=== PATIENT | male | born 1930 | race Caucasian/White ===

== ENCOUNTER 2017-04-05 08:16 | Observation (INO) | payer OTHER ==
[~2017-04-05] VITALS: Ht 180.3 cm; Wt 135.4 kg
[~2017-04-05 08:16] MED LIST: ACETAMINOPHEN650 M6 PO; AMIODARONE HCL200 MG PO; AMITRIPTYLINE H10 M1 PO; ASPIRIN81 M1 PO; CALCITRIOL0.25 MCG PO; COUMADIN,JANTOVE4 MG PO; COUMADIN,JANTOVE6 MG PO; Combivent IH; FUROSEMIDE40 MG PO; GLIMEPIRIDE1 MG PO; LASIX40 MG PO; LOPRESSOR100 M1 PO; METOPROLOL SUCC50 MG PO; NAMENDA XR28 MG PO; NORVASC5 MG PO; PACERONE200 M1 PO; PERCOCET 5/31 TABLET PO; POTABA500 MG PO; POTASSIUM GLUCO2 MEQ PO; PRADAXA150 MG PO; PRAVASTATIN SOD40 MG PO; PRINZIDE 20-121 EACH PO; TYLENOL 8 HOUR650 MG PO; VALSARTAN-HCTZ1 EAC2 PO; VISION VITAMIN1 EAC1 PO; VITAMIN D32000 UNI1 PO; WARFARIN SODIUM4 MG PO
[2017-04-05 09:02] LABS: EOSINOPHIL (%) 2.1 % (0-5); EOSINOPHIL COUNT 0.2 K/uL (0-0.3); HEMATOCRIT 33.7 % (38.0-50.0); IMMATURE GRANULOCYTE (%) 0.5 % (0.0-0.7); INSTRUMENT ABS NEUTROPHIL CT 6.3 K/uL; LYMPHOCYTE COUNT 1.3 K/uL (1.0-2.8); MCH 29.8 PG (29.0-34.0); MCHC 32.3 G/DL (30.0-36.0); MCV 92.1 FL (86-99); MEAN PLAT.VOLUME 9.7 uM^3 (9.0-12.4); MONOCYTE (%) 5.4 % (3-12); MONOCYTE COUNT 0.4 K/uL (0-0.8); NEUTROPHIL (%) 76.3 % (45-76); NEUTROPHIL COUNT 6.3 K/uL (1.8-6.4); PLATELET COUNT 185 K/uL (156-360); RBC DIS.WIDTH-CV 13.3 % (11.8-14.6); RBC DIS.WIDTH-SD 45.2 % (39-53); RED BLOOD COUNT 3.66 M/uL (4.00-5.50); WHITE BLOOD COUNT 8.2 K/uL (4.1-10.2)
[2017-04-05 09:11] LABS: INTER. NORMALIZED RATIO 1.5; PROTHROMBIN TIME 16.7 SEC (10.2-12.9)
[2017-04-05 09:14] LABS: CHLORIDE 100 mEq/L (99-109); POTASSIUM 4.3 mEq/L (3.7-5.4); PTT 58.3 SEC (25-37); SODIUM 136 mEq/L (136-147)
[2017-04-05 09:15] LABS: GLUCOSE 259 mg/dL (70-99)
[2017-04-05 09:17] LABS: ANION GAP 10 MEQ/L (2-14)
[2017-04-05 09:19] LABS: GFR ESTIMATE (CALCULATED) > 59 mL/min/
[2017-04-05 09:20] LABS: UREA NITROGEN (BUN) 24 mg/dL (9-23)
[2017-04-05 09:25] LABS: TROP-I INTERPRETATION NEGATIVE; TROPONIN-I < 0.01 ng/mL (0.0-0.30)
[2017-04-05] MEDS ORDERED: OCUVITE TABLET1 EACH PO (11:24)
[2017-04-05] MEDS ORDERED: K-DUR20 MEQ PO (11:25)
[2017-04-05] MEDS ORDERED: TYLENOL ARTHRI650 MG PO (11:25)
[2017-04-05 12:02] VITALS: BP 129/66
[2017-04-05 13:46] LABS: POINT-OF-CARE METER ID UU13113831
[2017-04-05 18:58] LABS: TROP-I INTERPRETATION NEGATIVE; TROPONIN-I 0.02 ng/mL (0.0-0.30)
[2017-04-05 19:00] VITALS: BP 133/62
[2017-04-05 22:25] LABS: POINT-OF-CARE METER ID UU13113831
[2017-04-05 23:18] VITALS: BP 136/68
[2017-04-06 03:08] LABS: TROP-I INTERPRETATION NEGATIVE; TROPONIN-I 0.01 ng/mL (0.0-0.30)
[2017-04-06 05:00] VITALS: BP 138/65
[2017-04-06 05:52] LABS: HEMATOCRIT 35.5 % (38.0-50.0); MCH 29.1 PG (29.0-34.0); MCHC 31.8 G/DL (30.0-36.0); MCV 91.5 FL (86-99); MEAN PLAT.VOLUME 10.1 uM^3 (9.0-12.4); PLATELET COUNT 197 K/uL (156-360); RBC DIS.WIDTH-CV 13.3 % (11.8-14.6); RBC DIS.WIDTH-SD 44.9 % (39-53); RED BLOOD COUNT 3.88 M/uL (4.00-5.50)
[2017-04-06 06:21] LABS: ALKALINE PHOSPHATASE 57 IU/L (3-129); ANION GAP 8 MEQ/L (2-14); CHLORIDE 95 MEQ/L (99-109); GFR ESTIMATE (CALCULATED) > 59 mL/min/; GLUCOSE 145 mg/dL (70-99); MAGNESIUM 1.8 mg/dl (1.3-2.7); POTASSIUM 3.8 MEQ/L (3.7-5.4); SAMPLE HEMOLYSIS CHECK 0; SAMPLE ICTERIC CHECK 0; SAMPLE LIPEMIA CHECK 0; SODIUM 135 MEQ/L (136-147); TOTAL BILIRUBIN 0.8 MG/DL (0.0-1.0); UREA NITROGEN (BUN) 25 mg/dL (9-23)
[2017-04-06 06:54] VITALS: BP 133/61
[2017-04-06 08:55] LABS: POINT-OF-CARE METER ID UU13113831
== END 2017-04-06 13:07 | disposition home or self-care (01) ==
LOC: EME 08:16 → 5WEST 10:36 → EDOF 10:36 → ENRESERV 10:39 → EDOF 10:50 → ENRESERV 11:22 → 5WEST 11:48
PROVIDERS: Emergency Medicine; Hospitalist
DX: R07.9 Chest pain, unspecified (principal); I11.0 Hypertensive heart disease with heart failure; I50.9 Heart failure, unspecified; I48.91 Unspecified atrial fibrillation; Z95.0 Presence of cardiac pacemaker; E78.5 Hyperlipidemia, unspecified; F03.90 Unspecified dementia, unspecified severity, without behavioral disturbance, psychotic disturbance, mood disturbance, and anxiety; E11.9 Type 2 diabetes mellitus without complications; Z87.891 Personal history of nicotine dependence; Z66 Do not resuscitate
CPT/HCPCS: 71010; 71020; 80048; 80053; 82948; 83735; 83880; 84484; 85025; 85027; 85610; 85730; 93005; 94640; 99281; 99285; G0378; J1815; J1940

== ENCOUNTER 2017-06-13 09:21 | Emergency (ER) | payer OTHER ==
[~2017-06-13] VITALS: Ht 180.3 cm; Wt 134.4 kg
[~2017-06-13 09:21] MED LIST changes: +K-DUR20 MEQ PO; +OCUVITE TABLET1 EACH PO; +TYLENOL ARTHRI650 MG PO
[2017-06-13 10:04] LABS: EOSINOPHIL (%) 1.9 % (0-5); EOSINOPHIL COUNT 0.2 K/uL (0-0.3); HEMATOCRIT 34.6 % (38.0-50.0); IMMATURE GRANULOCYTE (%) 0.3 % (0.0-0.7); LYMPHOCYTE COUNT 1.2 K/uL (1.0-2.8); MCH 28.7 PG (29.0-34.0); MCHC 31.8 G/DL (30.0-36.0); MCV 90.3 FL (86-99); MEAN PLAT.VOLUME 9.9 uM^3 (9.0-12.4); MONOCYTE (%) 6.1 % (3-12); MONOCYTE COUNT 0.6 K/uL (0-0.8); NEUTROPHIL (%) 77.7 % (45-76); PLATELET COUNT 174 K/uL (156-360); RBC DIS.WIDTH-CV 13.4 % (11.8-14.6); RBC DIS.WIDTH-SD 44.2 % (39-53); RED BLOOD COUNT 3.83 M/uL (4.00-5.50)
[2017-06-13 10:18] LABS: CHLORIDE 90 mEq/L (99-109); POTASSIUM 4.1 mEq/L (3.7-5.4); SODIUM 130 mEq/L (136-147)
[2017-06-13 10:20] LABS: GLUCOSE 167 mg/dL (70-99)
[2017-06-13 10:21] LABS: ANION GAP 9 MEQ/L (2-14)
[2017-06-13 10:22] LABS: TOTAL BILIRUBIN 1.3 mg/dL (0.0-1.0)
[2017-06-13 10:23] LABS: ALKALINE PHOSPHATASE 68 IU/L (3-129)
[2017-06-13 10:24] LABS: GFR ESTIMATE (CALCULATED) > 59 mL/min/
[2017-06-13 10:25] LABS: UREA NITROGEN (BUN) 21 mg/dL (9-23)
[2017-06-13 10:28] LABS: TROP-I INTERPRETATION NEGATIVE; TROPONIN-I 0.02 ng/mL (0.0-0.30)
[2017-06-13 10:56] LABS: ADD MIUA? YES; BILIRUBIN NEGATIVE; BLOOD NEGATIVE; COLOR YELLOW ((YELLOW)); GLUCOSE (STRIP) NEGATIVE; KETONES NEGATIVE; LEUKOCYTES TRACE; NITRITE NEGATIVE; PROTEIN (STRIP) NEGATIVE; SPECIFIC GRAVITY 1.012 (1.000-1.030)
[2017-06-13 11:03] LABS: BACTERIA NONE SEEN /HPF; BUDDING YEAST 2+; EPITHELIAL CELLS NONE SEEN /HPF; HYALINE CASTS 0-5 /LPF; MUCUS NONE SEEN /LPF; RED BLOOD CELLS 0-5 /HPF (0-5); UCUL ADDED? NO; WHITE BLOOD CELLS 0-5 /HPF (0-5)
[2017-06-13 11:55] VITALS: BP 109/60
== END 2017-06-13 11:55 | disposition home or self-care (01) ==
LOC: EME 09:21
PROVIDERS: Physician Assistant
DX: R06.02 Shortness of breath (principal); E87.1 Hypo-osmolality and hyponatremia; I12.9 Hypertensive chronic kidney disease with stage 1 through stage 4 chronic kidney disease, or unspecified chronic kidney disease; N18.9 Chronic kidney disease, unspecified; E11.22 Type 2 diabetes mellitus with diabetic chronic kidney disease; E78.5 Hyperlipidemia, unspecified; Z95.0 Presence of cardiac pacemaker; Z79.84 Long term (current) use of oral hypoglycemic drugs; Z87.891 Personal history of nicotine dependence
CPT/HCPCS: 71020; 80053; 81003; 83880; 84484; 85025; 93005; 99281; 99284

== ENCOUNTER 2017-06-16 10:09 | Inpatient (IN) | payer OTHER ==
[~2017-06-16] VITALS: Ht 180.3 cm; Wt 134.3 kg
[2017-06-16] VITALS (8 sets, daily range): BP systolic 93–153; BP diastolic 55–87
[2017-06-16 11:10] LABS: HEMATOCRIT 32.3 % (38.0-50.0); MCH 29.3 PG (29.0-34.0); MCHC 32.5 G/DL (30.0-36.0); MCV 90.2 FL (86-99); MEAN PLAT.VOLUME 9.8 uM^3 (9.0-12.4); PLATELET COUNT 165 K/uL (156-360); RBC DIS.WIDTH-CV 13.5 % (11.8-14.6); RBC DIS.WIDTH-SD 44.7 % (39-53); RED BLOOD COUNT 3.58 M/uL (4.00-5.50); WHITE BLOOD COUNT 8.5 K/uL (4.1-10.2)
[2017-06-16 11:20] LABS: CHLORIDE 91 mEq/L (99-109); POTASSIUM 3.7 mEq/L (3.7-5.4); SODIUM 131 mEq/L (136-147)
[2017-06-16 11:21] LABS: GLUCOSE 170 mg/dL (70-99)
[2017-06-16 11:23] LABS: ANION GAP 10 MEQ/L (2-14)
[2017-06-16 11:25] LABS: GFR ESTIMATE (CALCULATED) 51 mL/min/
[2017-06-16 11:26] LABS: UREA NITROGEN (BUN) 27 mg/dL (9-23)
[2017-06-16 11:37] LABS: TROP-I INTERPRETATION NEGATIVE; TROPONIN-I 0.02 ng/mL (0.0-0.30)
[2017-06-16] MEDS ORDERED: TYLENOL EXTRA500 MG PO (14:05)
[2017-06-16 16:12] LABS: POINT-OF-CARE METER ID UU13113774
[2017-06-16 17:06] LABS: TROP-I INTERPRETATION NEGATIVE; TROPONIN-I 0.03 ng/mL (0.0-0.30)
[2017-06-16 22:11] LABS: POINT-OF-CARE METER ID UU13113774
[2017-06-17 00:08] LABS: TROP-I INTERPRETATION NEGATIVE; TROPONIN-I 0.02 ng/mL (0.0-0.30)
[2017-06-17 06:00] LABS: POINT-OF-CARE METER ID UU13113774
[2017-06-17 06:44] VITALS: BP 126/62
[2017-06-17 07:26] LABS: ANION GAP 7 MEQ/L (2-14); CHLORIDE 89 MEQ/L (99-109); GFR ESTIMATE (CALCULATED) 51 mL/min/; POTASSIUM 3.3 MEQ/L (3.7-5.4); SAMPLE HEMOLYSIS CHECK 0; SAMPLE ICTERIC CHECK 0; SAMPLE LIPEMIA CHECK 0; SODIUM 132 MEQ/L (136-147); UREA NITROGEN (BUN) 24 mg/dL (9-23)
[2017-06-17 07:32] LABS: GLUCOSE 110 mg/dL (70-99)
[2017-06-17 09:13] LABS: MAGNESIUM 2.1 mg/dl (1.3-2.7)
[2017-06-17 11:15] VITALS: BP 108/62
[2017-06-17 11:28] LABS: POINT-OF-CARE METER ID UU13113774
[2017-06-17 12:14] LABS: ADD MIUA? YES; BILIRUBIN NEGATIVE; BLOOD NEGATIVE; COLOR YELLOW ((YELLOW)); GLUCOSE (STRIP) NEGATIVE; KETONES NEGATIVE; LEUKOCYTES TRACE; NITRITE NEGATIVE; PROTEIN (STRIP) NEGATIVE; SPECIFIC GRAVITY 1.006 (1.000-1.030); UROBILINOGEN 0.2 MG/DL (0.2-1.0)
[2017-06-17 12:40] LABS: BACTERIA NONE SEEN /HPF; EPITHELIAL CELLS NONE SEEN /HPF; HYALINE CASTS 0-5 /LPF; MUCUS TRACE /LPF; RED BLOOD CELLS 0-5 /HPF (0-5); UCUL ADDED? YES; WHITE BLOOD CELLS 15-20 /HPF (0-5)
[2017-06-17 15:00] VITALS: BP 103/52
[2017-06-17 16:27] LABS: POINT-OF-CARE METER ID UU13113774
[2017-06-17 20:56] VITALS: BP 116/57
[2017-06-18 00:20] VITALS: BP 104/51
[2017-06-18 04:51] VITALS: BP 127/63
[2017-06-18 06:30] LABS: EOSINOPHIL COUNT 0.2 K/uL (0-0.3); HEMATOCRIT 33.9 % (38.0-50.0); IMMATURE GRANULOCYTE (%) 0.5 % (0.0-0.7); INSTRUMENT ABS NEUTROPHIL CT 5.7 K/uL; LYMPHOCYTE COUNT 1.5 K/uL (1.0-2.8); MCH 28.6 PG (29.0-34.0); MCHC 31.6 G/DL (30.0-36.0); MCV 90.6 FL (86-99); MEAN PLAT.VOLUME 9.8 uM^3 (9.0-12.4); MONOCYTE (%) 6.4 % (3-12); MONOCYTE COUNT 0.5 K/uL (0-0.8); NEUTROPHIL COUNT 5.7 K/uL (1.8-6.4); PLATELET COUNT 169 K/uL (156-360); RBC DIS.WIDTH-CV 13.6 % (11.8-14.6); RED BLOOD COUNT 3.74 M/uL (4.00-5.50); WHITE BLOOD COUNT 7.9 K/uL (4.1-10.2)
[2017-06-18 06:50] VITALS: BP 124/59
[2017-06-18 06:54] LABS: ALKALINE PHOSPHATASE 71 IU/L (3-129); ANION GAP 8 MEQ/L (2-14); CHLORIDE 90 MEQ/L (99-109); GFR ESTIMATE (CALCULATED) > 59 mL/min/; GLUCOSE 146 mg/dL (70-99); POTASSIUM 3.8 MEQ/L (3.7-5.4); SAMPLE HEMOLYSIS CHECK 0; SAMPLE ICTERIC CHECK 0; SAMPLE LIPEMIA CHECK 0; SODIUM 131 MEQ/L (136-147); TOTAL BILIRUBIN 1.1 MG/DL (0.0-1.0); UREA NITROGEN (BUN) 31 mg/dL (9-23)
[2017-06-18 07:16] LABS: POINT-OF-CARE METER ID UU13113725
[2017-06-18 11:07] VITALS: BP 109/57
[2017-06-18 11:21] LABS: POINT-OF-CARE METER ID UU13113774
[2017-06-18 15:20] VITALS: BP 107/54
[2017-06-18 16:14] LABS: POINT-OF-CARE METER ID UU13113774
[2017-06-18 20:01] VITALS: BP 115/58
[2017-06-19 00:14] VITALS: BP 124/68
[2017-06-19 04:51] VITALS: BP 127/73
[2017-06-19 05:59] LABS: POINT-OF-CARE METER ID UU13113774
[2017-06-19 06:20] LABS: EOSINOPHIL (%) 1.8 % (0-5); EOSINOPHIL COUNT 0.2 K/uL (0-0.3); HEMATOCRIT 33.9 % (38.0-50.0); IMMATURE GRANULOCYTE (%) 0.5 % (0.0-0.7); IMMATURE GRANULOCYTE COUNT 0.1 K/uL; INSTRUMENT ABS NEUTROPHIL CT 6.5 K/uL; LYMPHOCYTE COUNT 1.9 K/uL (1.0-2.8); MCH 28.5 PG (29.0-34.0); MCHC 31.3 G/DL (30.0-36.0); MCV 91.1 FL (86-99); MEAN PLAT.VOLUME 9.8 uM^3 (9.0-12.4); MONOCYTE (%) 7.2 % (3-12); MONOCYTE COUNT 0.7 K/uL (0-0.8); NEUTROPHIL COUNT 6.5 K/uL (1.8-6.4); PLATELET COUNT 163 K/uL (156-360); RBC DIS.WIDTH-CV 13.4 % (11.8-14.6); RBC DIS.WIDTH-SD 44.6 % (39-53); RED BLOOD COUNT 3.72 M/uL (4.00-5.50); WHITE BLOOD COUNT 9.3 K/uL (4.1-10.2)
[2017-06-19 06:49] LABS: ALKALINE PHOSPHATASE 65 IU/L (3-129); ANION GAP 8 MEQ/L (2-14); CHLORIDE 92 MEQ/L (99-109); GFR ESTIMATE (CALCULATED) > 59 mL/min/; GLUCOSE 121 mg/dL (70-99); POTASSIUM 3.6 MEQ/L (3.7-5.4); SAMPLE HEMOLYSIS CHECK 0; SAMPLE ICTERIC CHECK 0; SAMPLE LIPEMIA CHECK 0; SODIUM 134 MEQ/L (136-147); TOTAL BILIRUBIN 1.2 MG/DL (0.0-1.0); UREA NITROGEN (BUN) 28 mg/dL (9-23)
[2017-06-19 09:28] VITALS: BP 120/60
[2017-06-19 10:26] LABS: BASE EXCESS 11.5 mEq/L (-3 to +3); CARBOXY HGB 1.9 % (0-5); COMMENTS - BLOOD GASES A+C+; DEVICE NC; METHEMOGLOBIN 1.2 % (0-1.5); O2 FLOW 2 L/MIN; PCO2 52 mm Hg (35-45); PO2 95 mm Hg (80-100); SITE LR; TOTAL RESP RATE 20 resp/min; pH 7.46 (7.35-7.45)
[2017-06-19 11:56] LABS: POINT-OF-CARE METER ID UU13113774
[2017-06-19] MEDS ORDERED: VALSARTAN160 MG PO (12:03)
== END 2017-06-19 15:55 | disposition home health service (06) | DRG 291 ==
LOC: EME 10:09 → EDOF 12:47 → ENRESERV 13:00 → CANRESERV 13:00 → 5EAST 13:21 → EDOF 13:21 → ENRESERV 13:24 → 5EAST 15:09 → ENPENDDIS 06-19 → 5EAST 06-19 15:55
PROVIDERS: Hospitalist; Internal Medicine
DX: I13.0 Hypertensive heart and chronic kidney disease with heart failure and stage 1 through stage 4 chronic kidney disease, or unspecified chronic kidney disease (principal); I50.33 Acute on chronic diastolic (congestive) heart failure; J96.01 Acute respiratory failure with hypoxia; N17.9 Acute kidney failure, unspecified; E87.1 Hypo-osmolality and hyponatremia; E87.6 Hypokalemia; E11.22 Type 2 diabetes mellitus with diabetic chronic kidney disease; N18.3 Chronic kidney disease, stage 3 (moderate); I48.2 Chronic atrial fibrillation; D64.9 Anemia, unspecified; E78.5 Hyperlipidemia, unspecified; E66.9 Obesity, unspecified; G30.9 Alzheimer's disease, unspecified; F02.80 Dementia in other diseases classified elsewhere, unspecified severity, without behavioral disturbance, psychotic disturbance, mood disturbance, and anxiety; G43.909 Migraine, unspecified, not intractable, without status migrainosus; Z87.891 Personal history of nicotine dependence; Z95.0 Presence of cardiac pacemaker; Z23 Encounter for immunization
CPT/HCPCS: 36600; 71020; 80048; 80053; 81003; 82803; 82948; 83735; 83880; 84484; 85025; 85027; 87086; 90686; 93005; 93306; 93971; 94799; 99202; 99281; 99284; 99285; J1815; J1940

== ENCOUNTER 2017-06-23 14:35 | Inpatient (IN) | payer OTHER ==
[~2017-06-23] VITALS: Ht 180.3 cm; Wt 129.4 kg
[~2017-06-23 14:35] MED LIST changes: +TYLENOL EXTRA500 MG PO; +VALSARTAN160 MG PO
[2017-06-23 15:42] LABS: HEMATOCRIT 34.7 % (38.0-50.0); MCH 29.1 PG (29.0-34.0); MCV 90.8 FL (86-99); PLATELET COUNT 156 K/uL (156-360); RBC DIS.WIDTH-CV 13.2 % (11.8-14.6); RBC DIS.WIDTH-SD 43.8 % (39-53); RED BLOOD COUNT 3.82 M/uL (4.00-5.50); WHITE BLOOD COUNT 8.9 K/uL (4.1-10.2)
[2017-06-23 15:50] LABS: CHLORIDE 92 mEq/L (99-109); SODIUM 130 mEq/L (136-147)
[2017-06-23 15:52] LABS: GLUCOSE 100 mg/dL (70-99)
[2017-06-23 15:53] LABS: ANION GAP 12 MEQ/L (2-14)
[2017-06-23 15:55] LABS: GFR ESTIMATE (CALCULATED) 56 mL/min/
[2017-06-23 15:56] LABS: UREA NITROGEN (BUN) 29 mg/dL (9-23)
[2017-06-23 18:34] LABS: TROP-I INTERPRETATION NEGATIVE; TROPONIN-I 0.02 ng/mL (0.0-0.30)
[2017-06-23 22:12] VITALS: BP 148/81
[2017-06-23 23:00] LABS: POINT-OF-CARE METER ID UU14314084
[2017-06-23 23:18] LABS: TROP-I INTERPRETATION NEGATIVE; TROPONIN-I 0.02 ng/mL (0.0-0.30)
[2017-06-24 03:42] VITALS: BP 136/75
[2017-06-24 06:21] LABS: POINT-OF-CARE METER ID UU14208750
[2017-06-24 07:23] LABS: HEMATOCRIT 32.5 % (38.0-50.0); MCH 28.7 PG (29.0-34.0); MCHC 31.4 G/DL (30.0-36.0); MCV 91.3 FL (86-99); MEAN PLAT.VOLUME 10.3 uM^3 (9.0-12.4); PLATELET COUNT 143 K/uL (156-360); RBC DIS.WIDTH-CV 13.3 % (11.8-14.6); RBC DIS.WIDTH-SD 45.1 % (39-53); RED BLOOD COUNT 3.56 M/uL (4.00-5.50)
[2017-06-24 07:48] LABS: ANION GAP 6 MEQ/L (2-14); CHLORIDE 94 MEQ/L (99-109); GFR ESTIMATE (CALCULATED) > 59 mL/min/; GLUCOSE 102 mg/dL (70-99); POTASSIUM 4.7 MEQ/L (3.7-5.4); SAMPLE HEMOLYSIS CHECK 0; SAMPLE ICTERIC CHECK 0; SAMPLE LIPEMIA CHECK 0; SODIUM 132 MEQ/L (136-147); UREA NITROGEN (BUN) 28 mg/dL (9-23)
[2017-06-24 07:49] VITALS: BP 134/78
[2017-06-24 07:51] LABS: TROP-I INTERPRETATION NEGATIVE; TROPONIN-I 0.02 ng/mL (0.0-0.30)
[2017-06-24 12:13] VITALS: BP 130/74
[2017-06-24 12:27] LABS: POINT-OF-CARE METER ID UU14208750
[2017-06-24 15:50] VITALS: BP 113/59
[2017-06-24 16:52] LABS: POINT-OF-CARE METER ID UU14208750
[2017-06-24 19:31] VITALS: BP 115/59
[2017-06-24 21:39] LABS: POINT-OF-CARE METER ID UU14314084
[2017-06-24 23:39] VITALS: BP 114/59
[2017-06-25 03:39] VITALS: BP 124/64
[2017-06-25 06:31] LABS: POINT-OF-CARE METER ID UU14314084
[2017-06-25 07:02] LABS: EOSINOPHIL (%) 2.1 % (0-5); EOSINOPHIL COUNT 0.2 K/uL (0-0.3); IMMATURE GRANULOCYTE (%) 0.5 % (0.0-0.7); INSTRUMENT ABS NEUTROPHIL CT 5.3 K/uL; LYMPHOCYTE COUNT 1.4 K/uL (1.0-2.8); MCH 29.5 PG (29.0-34.0); MCHC 32.9 G/DL (30.0-36.0); MCV 89.6 FL (86-99); MEAN PLAT.VOLUME 10.2 uM^3 (9.0-12.4); MONOCYTE (%) 8.7 % (3-12); MONOCYTE COUNT 0.7 K/uL (0-0.8); NEUTROPHIL (%) 70.2 % (45-76); NEUTROPHIL COUNT 5.3 K/uL (1.8-6.4); PLATELET COUNT 149 K/uL (156-360); RBC DIS.WIDTH-CV 13.2 % (11.8-14.6); RBC DIS.WIDTH-SD 43.4 % (39-53); RED BLOOD COUNT 3.46 M/uL (4.00-5.50); WHITE BLOOD COUNT 7.5 K/uL (4.1-10.2)
[2017-06-25 07:31] LABS: ANION GAP 10 MEQ/L (2-14); CHLORIDE 89 MEQ/L (99-109); GFR ESTIMATE (CALCULATED) 56 mL/min/; GLUCOSE 84 mg/dL (70-99); SAMPLE HEMOLYSIS CHECK 0; SAMPLE ICTERIC CHECK 0; SAMPLE LIPEMIA CHECK 0; SODIUM 132 MEQ/L (136-147); UREA NITROGEN (BUN) 32 mg/dL (9-23)
[2017-06-25 07:32] LABS: POTASSIUM 3.2 MEQ/L (3.7-5.4)
[2017-06-25 07:45] VITALS: BP 137/62
[2017-06-25 11:40] VITALS: BP 109/56
[2017-06-25 12:24] LABS: POINT-OF-CARE METER ID UU14162508
[2017-06-25 15:35] VITALS: BP 111/59
[2017-06-25 16:35] LABS: ANION GAP 10 MEQ/L (2-14); CHLORIDE 88 MEQ/L (99-109); GFR ESTIMATE (CALCULATED) 51 mL/min/; POTASSIUM 3.6 MEQ/L (3.7-5.4); SAMPLE HEMOLYSIS CHECK 1; SAMPLE ICTERIC CHECK 0; SAMPLE LIPEMIA CHECK 0; SODIUM 129 MEQ/L (136-147); UREA NITROGEN (BUN) 35 mg/dL (9-23)
[2017-06-25 16:39] LABS: GLUCOSE 127 mg/dL (70-99)
[2017-06-25 17:28] LABS: POINT-OF-CARE METER ID UU14208750
[2017-06-25 19:55] VITALS: BP 113/59
[2017-06-25 20:43] LABS: POINT-OF-CARE METER ID UU14314084
[2017-06-25 22:55] VITALS: BP 117/65
[2017-06-26 03:25] VITALS: BP 118/63
[2017-06-26 07:06] LABS: ANION GAP 9 MEQ/L (2-14); CHLORIDE 89 MEQ/L (99-109); GFR ESTIMATE (CALCULATED) 51 mL/min/; GLUCOSE 108 mg/dL (70-99); POTASSIUM 3.4 MEQ/L (3.7-5.4); SAMPLE HEMOLYSIS CHECK 0; SAMPLE ICTERIC CHECK 0; SAMPLE LIPEMIA CHECK 0; SODIUM 131 MEQ/L (136-147); UREA NITROGEN (BUN) 33 mg/dL (9-23)
[2017-06-26 08:34] VITALS: BP 125/65
[2017-06-26 11:07] VITALS: BP 97/54
[2017-06-26 11:42] LABS: POINT-OF-CARE METER ID UU14162508
[2017-06-26 16:02] VITALS: BP 123/65
[2017-06-26 16:16] LABS: POINT-OF-CARE METER ID UU14162508
[2017-06-26 19:00] VITALS: BP 125/65
[2017-06-26 21:35] LABS: POINT-OF-CARE METER ID UU14314084
[2017-06-26 23:17] VITALS: BP 131/73
[2017-06-27 03:10] VITALS: BP 120/62
[2017-06-27 06:39] LABS: POINT-OF-CARE METER ID UU14162508
[2017-06-27 07:08] VITALS: BP 117/64
[2017-06-27 07:21] LABS: ANION GAP 8 MEQ/L (2-14); CHLORIDE 87 MEQ/L (99-109); GFR ESTIMATE (CALCULATED) 56 mL/min/; GLUCOSE 117 mg/dL (70-99); POTASSIUM 3.1 MEQ/L (3.7-5.4); SAMPLE HEMOLYSIS CHECK 0; SAMPLE ICTERIC CHECK 0; SAMPLE LIPEMIA CHECK 0; SODIUM 133 MEQ/L (136-147); UREA NITROGEN (BUN) 30 mg/dL (9-23)
[2017-06-27 08:49] VITALS: BP 108/55
[2017-06-27 11:28] LABS: POINT-OF-CARE METER ID UU14162508
[2017-06-27] MEDS ORDERED: TYLENOL EXTRA500 MG PO (11:52)
[2017-06-27] MEDS ORDERED: K-DUR20 MEQ PO (11:52)
[2017-06-27] MEDS ORDERED: LOPRESSOR50 MG PO (11:52)
[2017-06-27] MEDS ORDERED: BUMETANIDE1 MG PO (11:52)
== END 2017-06-27 13:10 | disposition home health service (06) | DRG 291 ==
LOC: EME 14:35 → EDOF 18:49 → 2EAST 18:49 → ENRESERV 19:05 → 2EAST 21:41
PROVIDERS: Hospitalist; Internal Medicine; Physician Assistant Medical; Student in an Organized Health Care Education/Training Program
DX: I13.0 Hypertensive heart and chronic kidney disease with heart failure and stage 1 through stage 4 chronic kidney disease, or unspecified chronic kidney disease (principal); I50.33 Acute on chronic diastolic (congestive) heart failure; J96.01 Acute respiratory failure with hypoxia; E11.22 Type 2 diabetes mellitus with diabetic chronic kidney disease; N18.3 Chronic kidney disease, stage 3 (moderate); E87.6 Hypokalemia; K86.2 Cyst of pancreas; I27.20 Pulmonary hypertension, unspecified; I08.2 Rheumatic disorders of both aortic and tricuspid valves; I48.2 Chronic atrial fibrillation; M43.6 Torticollis; M54.2 Cervicalgia; E78.5 Hyperlipidemia, unspecified; G30.9 Alzheimer's disease, unspecified; F02.80 Dementia in other diseases classified elsewhere, unspecified severity, without behavioral disturbance, psychotic disturbance, mood disturbance, and anxiety; E66.9 Obesity, unspecified; G43.909 Migraine, unspecified, not intractable, without status migrainosus; Z68.41 Body mass index [BMI] 40.0-44.9, adult; Z95.0 Presence of cardiac pacemaker; Z79.01 Long term (current) use of anticoagulants; Z87.891 Personal history of nicotine dependence
CPT/HCPCS: 71010; 71020; 71250; 74178; 80048; 80048 91; 82948; 83880; 84484; 85025; 85027; 86301 90; 87040; 93005; 99202; 99281; 99285; J0456; J0692; J0696; J1815; J1940; J3370; J7050

== ENCOUNTER 2017-09-28 17:29 | Emergency (ER) | payer OTHER ==
[~2017-09-28] VITALS: Ht 180.3 cm; Wt 123.2 kg
[~2017-09-28 17:29] MED LIST changes: +BUMETANIDE1 MG PO; +LOPRESSOR50 MG PO
[2017-09-28 18:27] LABS: BASOPHIL (%) 0.5 % (0-1); EOSINOPHIL (%) 2.5 % (0-5); EOSINOPHIL COUNT 0.2 K/uL (0-0.3); HEMATOCRIT 34.9 % (38.0-50.0); HEMOGLOBIN 10.9 G/DL (12.5-16.6); IMMATURE GRANULOCYTE (%) 0.2 % (0.0-0.7); LYMPHOCYTE COUNT 1.3 K/uL (1.0-2.8); MCH 27.2 PG (29.0-34.0); MCHC 31.2 G/DL (30.0-36.0); MONOCYTE (%) 8.7 % (3-12); MONOCYTE COUNT 0.6 K/uL (0-0.8); NEUTROPHIL (%) 68.1 % (45-76); NEUTROPHIL COUNT 4.3 K/uL (1.8-6.4); PLATELET COUNT 179 K/uL (156-360); RBC DIS.WIDTH-CV 15.5 % (11.8-14.6); RBC DIS.WIDTH-SD 49.1 % (39-53); RED BLOOD COUNT 4.01 M/uL (4.00-5.50); WHITE BLOOD COUNT 6.3 K/uL (4.1-10.2)
[2017-09-28 18:38] LABS: ALBUMIN 3.6 g/dL (3.2-4.8); CHLORIDE 104 mEq/L (99-109); MAGNESIUM 2.4 mg/dL (1.3-2.7); POTASSIUM 4.4 mEq/L (3.7-5.4); SODIUM 142 mEq/L (136-147)
[2017-09-28 18:40] LABS: GLUCOSE 141 mg/dL (70-99); TOTAL PROTEIN 6.4 g/dL (6.4-8.3)
[2017-09-28 18:42] LABS: TOTAL BILIRUBIN 0.8 mg/dL (0.0-1.0)
[2017-09-28 18:44] LABS: ALKALINE PHOSPHATASE 160 IU/L (3-129); CREATININE 1.3 mg/dL (0.6-1.3); GFR ESTIMATE (CALCULATED) 56 mL/min/ (58.99-99999)
[2017-09-28 18:45] LABS: AST (GOT) 20 IU/L (2-34); UREA NITROGEN (BUN) 30 mg/dL (9-23)
[2017-09-28 18:47] LABS: ALT (GPT) 17 IU/L (3-49)
[2017-09-28 18:48] LABS: TROP-I INTERPRETATION NEGATIVE; TROPONIN-I 0.03 ng/mL (0.0-0.30)
[2017-09-28 21:15] VITALS: BP 143/78
== END 2017-09-28 21:45 | disposition home or self-care (01) ==
LOC: EME 17:29
PROVIDERS: Emergency Medicine
DX: I13.0 Hypertensive heart and chronic kidney disease with heart failure and stage 1 through stage 4 chronic kidney disease, or unspecified chronic kidney disease (principal); I50.9 Heart failure, unspecified; E11.22 Type 2 diabetes mellitus with diabetic chronic kidney disease; N18.9 Chronic kidney disease, unspecified; J90 Pleural effusion, not elsewhere classified; E78.5 Hyperlipidemia, unspecified; Z95.0 Presence of cardiac pacemaker; G30.9 Alzheimer's disease, unspecified; F02.80 Dementia in other diseases classified elsewhere, unspecified severity, without behavioral disturbance, psychotic disturbance, mood disturbance, and anxiety; Z87.891 Personal history of nicotine dependence
CPT/HCPCS: 71046; 80053; 83735; 83880; 84484; 85025; 93005; J1940

== ENCOUNTER 2017-10-24 09:32 | Inpatient (IN) | payer OTHER ==
[~2017-10-24] VITALS: Ht 180.3 cm; Wt 120.0 kg
[2017-10-24] MEDS ORDERED: AMIODARONE HCL200 MG PO (10:37)
[2017-10-24] MEDS ORDERED: ALPRAZOLAM0.25 M2 PO (10:38)
[2017-10-24 10:58] LABS: BASOPHIL (%) 0.5 % (0-1); EOSINOPHIL (%) 1.8 % (0-5); EOSINOPHIL COUNT 0.1 K/uL (0-0.3); HEMATOCRIT 36.4 % (38.0-50.0); HEMOGLOBIN 11.2 G/DL (12.5-16.6); IMMATURE GRANULOCYTE (%) 0.3 % (0.0-0.7); LYMPHOCYTE (%) 9.7 % (15-42); LYMPHOCYTE COUNT 0.6 K/uL (1.0-2.8); MCH 26.7 PG (29.0-34.0); MCHC 30.8 G/DL (30.0-36.0); MCV 86.9 FL (86-99); MONOCYTE (%) 5.7 % (3-12); MONOCYTE COUNT 0.4 K/uL (0-0.8); NEUTROPHIL COUNT 5.1 K/uL (1.8-6.4); PLATELET COUNT 172 K/uL (156-360); RBC DIS.WIDTH-CV 16.8 % (11.8-14.6); RBC DIS.WIDTH-SD 52.8 % (39-53); RED BLOOD COUNT 4.19 M/uL (4.00-5.50); WHITE BLOOD COUNT 6.2 K/uL (4.1-10.2)
[2017-10-24 10:59] LABS: CARBON DIOXIDE (BICARBONATE) 36.1 MEQ/L (20-31)
[2017-10-24 11:04] LABS: BASE EXCESS 8.6 mEq/L (-3 to +3); CARBOXY HGB 2.4 % (0-5); METHEMOGLOBIN 1.1 % (0-1.5); PCO2 50 mm Hg (35-45); PO2 88 mm Hg (80-100); pH 7.44 (7.35-7.45)
[2017-10-24 11:05] LABS: COMMENTS - BLOOD GASES A+C+; DEVICE NC; O2 FLOW 3 L/MIN; SITE RR
[2017-10-24 11:23] LABS: TROP-I INTERPRETATION NEGATIVE; TROPONIN-I 0.04 ng/mL (0.0-0.30)
[2017-10-24 11:31] LABS: CHLORIDE 102 mEq/L (99-109); SODIUM 143 mEq/L (136-147)
[2017-10-24 11:33] LABS: GLUCOSE 128 mg/dL (70-99)
[2017-10-24 11:34] LABS: TOTAL PROTEIN 6.6 g/dL (6.4-8.3)
[2017-10-24 11:35] LABS: TOTAL BILIRUBIN 1.6 mg/dL (0.0-1.0)
[2017-10-24 11:37] LABS: ALKALINE PHOSPHATASE 197 IU/L (3-129); CREATININE 1.2 mg/dL (0.6-1.3); GFR ESTIMATE (CALCULATED) > 59 mL/min/ (58.99-99999)
[2017-10-24 11:38] LABS: UREA NITROGEN (BUN) 22 mg/dL (9-23)
[2017-10-24 11:39] LABS: AST (GOT) 20 IU/L (2-34)
[2017-10-24 11:40] LABS: ALT (GPT) 16 IU/L (3-49)
[2017-10-24 13:16] LABS: INTER. NORMALIZED RATIO 1.7
[2017-10-24] MEDS ORDERED: BUMETANIDE1 MG PO (16:23)
[2017-10-24] MEDS ORDERED: KLOR-CON M2020 MEQ PO (16:24)
[2017-10-24] MEDS ORDERED: LOPRESSOR25 MG PO (16:24)
[2017-10-24] MEDS ORDERED: COLACE100 MG PO (16:24)
[2017-10-24 16:56] VITALS: BP 128/60
[2017-10-24 19:29] VITALS: BP 120/58
[2017-10-24 23:36] VITALS: BP 109/56
[2017-10-25 04:00] VITALS: BP 111/54
[2017-10-25 06:36] LABS: HEMOGLOBIN 10.3 G/DL (12.5-16.6); MCH 26.5 PG (29.0-34.0); MCHC 30.3 G/DL (30.0-36.0); MCV 87.6 FL (86-99); PLATELET COUNT 148 K/uL (156-360); RBC DIS.WIDTH-CV 16.7 % (11.8-14.6); RBC DIS.WIDTH-SD 53.5 % (39-53); RED BLOOD COUNT 3.88 M/uL (4.00-5.50); WHITE BLOOD COUNT 4.2 K/uL (4.1-10.2)
[2017-10-25 07:13] LABS: ALBUMIN 3.5 G/DL (3.2-4.8); ALKALINE PHOSPHATASE 155 IU/L (3-129); ALT (GPT) 13 IU/L (3-49); AST (GOT) 17 IU/L (2-34); CHLORIDE 104 MEQ/L (99-109); GFR ESTIMATE (CALCULATED) > 59 mL/min/ (58.99-99999); GLUCOSE 108 mg/dL (70-99); MAGNESIUM 2.2 mg/dl (1.3-2.7); POTASSIUM 3.7 MEQ/L (3.7-5.4); SODIUM 144 MEQ/L (136-147); TOTAL PROTEIN 5.9 G/DL (6.4-8.3); UREA NITROGEN (BUN) 22 mg/dL (9-23)
[2017-10-25 08:07] VITALS: BP 108/55
[2017-10-25 12:59] VITALS: BP 116/65
[2017-10-25 16:33] VITALS: BP 118/70
[2017-10-25 20:09] VITALS: BP 112/61
[2017-10-25 23:53] VITALS: BP 111/56
[2017-10-26 03:44] VITALS: BP 129/67
[2017-10-26 06:50] LABS: BASOPHIL (%) 0.2 % (0-1); EOSINOPHIL (%) 2.3 % (0-5); EOSINOPHIL COUNT 0.1 K/uL (0-0.3); HEMATOCRIT 35.4 % (38.0-50.0); HEMOGLOBIN 10.8 G/DL (12.5-16.6); IMMATURE GRANULOCYTE (%) 0.4 % (0.0-0.7); LYMPHOCYTE COUNT 1.1 K/uL (1.0-2.8); MCH 26.7 PG (29.0-34.0); MCHC 30.5 G/DL (30.0-36.0); MCV 87.6 FL (86-99); MONOCYTE (%) 11.9 % (3-12); MONOCYTE COUNT 0.6 K/uL (0-0.8); NEUTROPHIL (%) 63.2 % (45-76); PLATELET COUNT 145 K/uL (156-360); RBC DIS.WIDTH-CV 16.6 % (11.8-14.6); RBC DIS.WIDTH-SD 52.8 % (39-53); RED BLOOD COUNT 4.04 M/uL (4.00-5.50); WHITE BLOOD COUNT 4.8 K/uL (4.1-10.2)
[2017-10-26 07:04] LABS: CHLORIDE 101 MEQ/L (99-109); CREATININE 1.1 MG/DL (0.6-1.3); GFR ESTIMATE (CALCULATED) > 59 mL/min/ (58.99-99999); GLUCOSE 105 mg/dL (70-99); POTASSIUM 3.6 MEQ/L (3.7-5.4); SODIUM 145 MEQ/L (136-147); UREA NITROGEN (BUN) 24 mg/dL (9-23)
[2017-10-26 08:05] VITALS: BP 133/63
[2017-10-26 16:32] VITALS: BP 129/76
[2017-10-26 20:09] VITALS: BP 140/84
[2017-10-27] VITALS: BP 146/72
[2017-10-27 06:44] LABS: CHLORIDE 105 MEQ/L (99-109); CREATININE 1.2 MG/DL (0.6-1.3); GFR ESTIMATE (CALCULATED) > 59 mL/min/ (58.99-99999); GLUCOSE 106 mg/dL (70-99); POTASSIUM 3.7 MEQ/L (3.7-5.4); SODIUM 144 MEQ/L (136-147); UREA NITROGEN (BUN) 26 mg/dL (9-23)
[2017-10-27 08:00] VITALS: BP 136/71
[2017-10-27 16:00] VITALS: BP 126/66
[2017-10-28 00:36] VITALS: BP 129/74
[2017-10-28 07:04] LABS: CHLORIDE 104 MEQ/L (99-109); GFR ESTIMATE (CALCULATED) > 59 mL/min/ (58.99-99999); GLUCOSE 114 mg/dL (70-99); POTASSIUM 3.7 MEQ/L (3.7-5.4); SODIUM 142 MEQ/L (136-147); UREA NITROGEN (BUN) 27 mg/dL (9-23)
[2017-10-28 08:28] VITALS: BP 141/72
[2017-10-28 22:00] VITALS: BP 111/62
[2017-10-28 23:57] VITALS: BP 132/68
[2017-10-29 06:33] LABS: CHLORIDE 103 MEQ/L (99-109); GFR ESTIMATE (CALCULATED) > 59 mL/min/ (58.99-99999); GLUCOSE 113 mg/dL (70-99); MAGNESIUM 2.1 mg/dl (1.3-2.7); POTASSIUM 3.8 MEQ/L (3.7-5.4); SODIUM 142 MEQ/L (136-147); UREA NITROGEN (BUN) 27 mg/dL (9-23)
[2017-10-29 07:46] VITALS: BP 147/71
[2017-10-29 21:00] VITALS: BP 111/59
[2017-10-30] VITALS: BP 100/69
[2017-10-30 07:07] LABS: CHLORIDE 102 MEQ/L (99-109); CREATININE 1.1 MG/DL (0.6-1.3); GFR ESTIMATE (CALCULATED) > 59 mL/min/ (58.99-99999); GLUCOSE 119 mg/dL (70-99); POTASSIUM 3.8 MEQ/L (3.7-5.4); SODIUM 142 MEQ/L (136-147); UREA NITROGEN (BUN) 28 mg/dL (9-23)
[2017-10-30 07:35] VITALS: BP 118/64
[2017-10-30] MEDS ORDERED: K-DUR20 MEQ PO (09:27)
[2017-10-30] MEDS ORDERED: PANTOPRAZOLE SO40 MG PO (09:27)
[2017-10-30 11:01] VITALS: BP 114/858
[2017-10-30] MEDS ORDERED: BUMETANIDE1 MG PO (11:09)
== END 2017-10-30 13:21 | disposition home or self-care (01) | DRG 291 ==
LOC: EME 09:32 → 5SOUTH 13:49 → EDOF 13:49 → ENRESERV 13:51 → EDOF 14:02 → ENRESERV 14:21 → 5SOUTH 16:23 → ENPENDDIS 10-30 11:05 → 5SOUTH 10-30 13:21
PROVIDERS: Emergency Medicine; Internal Medicine; Internal Medicine Cardiovascular Disease; Nurse Practitioner Family; Physician Assistant
DX: I13.0 Hypertensive heart and chronic kidney disease with heart failure and stage 1 through stage 4 chronic kidney disease, or unspecified chronic kidney disease (principal); I50.33 Acute on chronic diastolic (congestive) heart failure; J96.01 Acute respiratory failure with hypoxia; J18.9 Pneumonia, unspecified organism; J98.11 Atelectasis; N18.3 Chronic kidney disease, stage 3 (moderate); E11.22 Type 2 diabetes mellitus with diabetic chronic kidney disease; E78.5 Hyperlipidemia, unspecified; I27.20 Pulmonary hypertension, unspecified; I35.0 Nonrheumatic aortic (valve) stenosis; I36.1 Nonrheumatic tricuspid (valve) insufficiency; E66.9 Obesity, unspecified; I48.0 Paroxysmal atrial fibrillation; G43.909 Migraine, unspecified, not intractable, without status migrainosus; G30.9 Alzheimer's disease, unspecified; F02.80 Dementia in other diseases classified elsewhere, unspecified severity, without behavioral disturbance, psychotic disturbance, mood disturbance, and anxiety; Z95.0 Presence of cardiac pacemaker; Z79.84 Long term (current) use of oral hypoglycemic drugs; Z79.01 Long term (current) use of anticoagulants; Z68.38 Body mass index [BMI] 38.0-38.9, adult; Z87.891 Personal history of nicotine dependence
CPT/HCPCS: 36600; 71046; 80048; 80053; 82803; 82948; 83735; 83880; 84484; 85025; 85027; 85610; 87040; 93005; 94640; 94799; 97530 GO; 99202; 99281; 99285; J0456; J0696; J1815; J1940

== ENCOUNTER 2018-03-19 11:44 | Day surgery (SDC) | payer OTHER ==
[~2018-03-19] VITALS: Ht 177.8 cm; Wt 99.8 kg
[~2018-03-19 11:44] MED LIST changes: +ALPRAZOLAM0.25 M2 PO; +BUMETANIDE2 MG PO; +COLACE100 MG PO; +KLOR-CON M2020 MEQ PO; +LOPRESSOR25 MG PO; +PANTOPRAZOLE SO40 MG PO; +PROTONIX40 MG PO
== END 2018-03-19 14:55 | disposition home or self-care (01) ==
LOC: CATH 11:44
DX: Z45.010 Encounter for checking and testing of cardiac pacemaker pulse generator [battery] (principal); E78.5 Hyperlipidemia, unspecified; I48.91 Unspecified atrial fibrillation; I11.0 Hypertensive heart disease with heart failure; I50.9 Heart failure, unspecified
CPT/HCPCS: C1785; J0690; J1200; J2250; J3010; S0020